=== PATIENT | male | born 1990 | race Native Hawaiian/Other Pacific Islander ===

== ENCOUNTER 2019-02-21 18:08 | Emergency (ER) | payer MEDICAID ==
[2019-02-21] MEDS ORDERED: 0.9 % SODIUM CHLORIDE 1,000 ML BAG IV ONE (18:34)
--- NOTE | 2019-02-21 18:42 | Emergency Department Record ---
History of Present Illness - General Chief complaint: Fatigue and Weakness Stated complaint: dizziness,fatigue Time Seen by Provider: 02/21/19 18:32 Source: Patient, Family Mode of Arrival: Ambulatory Limitations: No limitations - History of Present Illness Initial comments: 28 yo male presents not feeling well for 2-2.5 weeks. He feels weak, tired, dizziness, nausea, some loss of appetite and vomiting. He did start [place] 300mg BID on 02/09/19 for depression prescribed by Dr Turner in [place]. No syncope or seizures. No fevers, chills or cough. He has had some blood in his stools. He saw GI today in consultation. He is formally a patient of the [facility] family practice but was dismissed for missing appointments per him. MD Complaint: Generalized weakness Onset/Timin -: Week(s) (2) Location: Generalized Severity: Moderate Quality: Other Consistency: Intermittent Improves with: None Worsens with: Medication Context: New medication Associated Symptoms: Loss of appetite - Ramsay Coma Scale Eye Response: (4) Open spontaneously Motor Response: (6) Obeys commands Verbal Response: (5) Oriented Ramsay Total: 15 - Related Data Allergies Allergy/AdvReac Type Severity Reaction Status Date / Time amoxicillin trihydrate Allergy Severe Hives Unverified 02/21/19 17:23 [From Augmentin] Penicillins Allergy Severe Hives Unverified 02/21/19 17:23 potassium clavulanate Allergy Severe Hives Unverified 02/21/19 17:23 [From Augmentin] Travel Screening - Travel/Exposure Within Last 30 Days Have you traveled within the last 30 days?: No - Travel/Exposure Within Last Year Have you traveled outside the [place] in the last year?: No - Additonal Travel Details Have you been exposed to anyone with a communicable illness?: No - Travel Symptoms Symptom Screening: Weakness, Fatigue Review of Systems Constitutional: Reports: Malaise, Weakness. Denies: Chills, Fever Eyes: Reports: Vision change (double at times). Denies: Eye discharge, Eye pain , Photophobia ENT: Denies: Congestion, Ear pain, Throat pain Respiratory: Denies: Cough, Wheezes Cardiovascular: Denies: Chest pain, Palpitations, Syncope Endocrine: Denies: Fatigue Gastrointestinal: Reports: Abdominal pain, Diarrhea, Hematochezia, Nausea, Vomiting Genitourinary: Denies: Dysuria, Frequency Musculoskeletal: Denies: Arthralgia, Back pain, Myalgia Skin: Denies: Bruising, Change in color, Rash Neurological: Reports: Vertigo, Weakness. Denies: Headache Psychiatric: Denies: Anxiety Hematological/Lymphatic: Denies: Easy bleeding, Easy bruising Past Medical History - SOCIAL HISTORY Smoking Status: Current every day smoker Alcohol Use: Occasional Drug Use: Heavy Drug Use Detail:: Marijuana - RESPIRATORY Hx Respiratory Disorders: No - CARDIOVASCULAR Hx Cardio Disorders: No - NEURO Hx Neuro Disorders: Yes Hx Headaches: Yes - GI Hx GI Disorders: Yes Hx Abdominal Pain: Yes Hx Rectal Bleeding: Yes - Hx Genitourinary Disorders: Yes Hx Kidney Stones: Yes - ENDOCRINE Hx Endocrine Disorders: No - MUSCULOSKELETAL Hx Musculoskeletal Disorders: Yes - PSYCH Hx Psych Problems: Yes Hx Anxiety: Yes Hx Depression: Yes Comment:: bipolar - HEMATOLOGY/ONCOLOGY Hx Hematology/Oncology Disorders: Yes Hx Anemia: Yes Family Medical History Any Significant Family History?: No Physical Exam - General General Appearance: Alert, Oriented x3, Cooperative, No acute distress Limitations: No limitations - Head Head exam: Atraumatic, Normal inspection - Eye Eye exam: Normal appearance, PERRL, EOMI. negative: Conjunctival injection, Nystagmus, Periorbital swelling, Scleral icterus - ENT ENT exam: Normal exam, Mucous membranes moist Ear exam: Normal external inspection Nasal Exam: Normal inspection Mouth exam: Normal external inspection Teeth exam: Normal inspection Throat exam: Normal inspection - Neck Neck exam: Normal inspection, Full ROM. negative: Lymphadenopathy, Tenderness - Respiratory Respiratory exam: Normal lung sounds bilaterally. negative: Respiratory distress - Cardiovascular Cardiovascular Exam: Regular rate, Normal rhythm, Normal heart sounds Peripheral Pulses: 2+: Radial (R), Radial (L) - GI/Abdominal GI/Abdominal exam: Soft. negative: Hypoactive bowel sounds - Rectal Rectal exam: Deferred - exam: Deferred - Extremities Extremities exam: Normal inspection, Calf tenderness. negative: Pedal edema, Tenderness - Back Back exam: Denies: CVA tenderness (R), CVA tenderness (L) - Neurological Neurological exam: Alert, CN II-XII intact, Normal gait, Oriented X3. negative : Abnormal gait, Altered, Motor sensory deficit - Psychiatric Psychiatric exam: Normal affect, Normal mood. negative: Agitated, Anxious, Depressed, Flat affect - Skin Skin exam: Dry, Intact, Normal color, Warm. negative: Diaphoretic, Erythema Course - Reevaluation(s) Reevaluation #1: 02/21/19 18:58 EKG #1 18:45 Sinus Bradycardia rate [address] J point elevation likely normal variant for age in very thin male [place] normal No prior EKG 02/21/19 19:19 No acute changes on the CBC or CMP 02/21/19 20:02 [place] is a send out that will be available in about 3 hours 02/21/19 23:44 Waiting for level still at this time. The patient is feeling greatly improved. He is ready to leave. I informed him the level is not back and may come back in a high or dangerous range. I is aware and unwilling to stay any longer. He will stop his [place] either way because of how he has felt since starting the medication. I discussed the AMA sign out process with him. He understands leaving has risks including toxicity and . He is willing to sign out AMA leaving prior to the level returning. He has left his lithium prescription with the ED to dispose. 02/21/19 23:46 02/22/19 01:06 The [place] level is normal at 0.3 Medical Decision Making - Lab Data Result diagrams: 02/21/19 18:45 02/21/19 18:45 Disposition Disposition: Discharge Clinical Impression: Weakness Disposition: Against Medical Advice Condition: (1) Good Instructions: Against Medical Advice (ED), Fatigue (ED) Additional Instructions: Stop your [place] Talk to your prescribing doctor today to discuss your symptoms Return immediately if the symptoms return Stay well hydrated Forms: Patient Portal Access Time of Disposition: 23:45 Quality - Quality Measures Quality Measures: N/A - Blood Pressure Screening Does Patient Have Any of the Following: No Blood Pressure Classification: Pre-Hypertensive BP Reading Systolic Measurement: 120 Diastolic Measurement: 77 Screening for High Blood Pressure: < Pre-Hypertensive BP, F/U Documented > [ [id number]] Pre-Hypertensive Follow-up Interventions: Referral to alternative/primary care provider.
[2019-02-21 18:52] LABS: BASO % 0.6 % (0-6); EOS % 2.8 % (0-6); GRAN % 64.3 % (47-80); HEMATOCRIT 39.6 % (42.0-52.0); HEMOGLOBIN 12.9 gm/dl (14.0-18.0); LYMPH % 24.3 % (16-45); MEAN CELL VOLUME 89.2 fl (81-97); MEAN CORPUSCULAR HGB CONC 32.6 g/dl (32-36); MEAN PLATELET VOLUME 9.5 fl (7.4-10.4); PLATELET COUNT 360 K/uL (130-400); RED BLOOD COUNT 4.44 M/uL (4.40-5.70); WHITE BLOOD COUNT W/O DIFF 7.9 K/uL (4.2-12.2)
[2019-02-21 19:05] LABS: BLOOD UREA NITROGEN 9 mg/dL (6-20); CREATININE 0.6 mg/dL (0.7-1.2); EST GLOMERULAR FILTRATION RATE > 60 mL/min
[2019-02-21 19:06] LABS: TOTAL PROTEIN 6.9 g/dL (6.6-8.7)
[2019-02-21 19:08] LABS: GLUCOSE,RANDOM 95 mg/dL (74-109)
[2019-02-21 19:11] LABS: ALB/GLOB RATIO 2.1 (1.1-1.8); ALBUMIN 4.7 g/dL (4.0-5.0); ALKALINE PHOSPHATASE 43 U/L (40-129); ALT/SGPT 9 U/L (<41); AST/SGOT 13 U/L (10.0-50.0)
[2019-02-21] MEDS ORDERED: 0.9 % SODIUM CHLORIDE 1000ML 1,000 ML IV ONE (20:02)
== END 2019-02-21 23:55 | disposition left against medical advice (07) ==
LOC: ER 18:08
DX: R53.1 Weakness (principal); R42 Dizziness and giddiness; R11.0 Nausea; R53.83 Other fatigue; F17.210 Nicotine dependence, cigarettes, uncomplicated; F31.9 Bipolar disorder, unspecified; R19.5 Other fecal abnormalities
CPT/HCPCS: 80053; 83735; 85025; 93005; 93010; 99284; J7030